=== PATIENT | male | born 1990 | race American Indian/Alaskan Native ===

== ENCOUNTER 2021-07-04 03:55 | Emergency (ER) | payer SELFPAY ==
[2021-07-04 04:49] VITALS: BP 131/78
[2021-07-04] MEDS ORDERED: SODIUM CHLORIDE 0.9% 1000 ML 1,000 ML IV ONE (05:08)
[2021-07-04] MEDS ORDERED: MORPHINE 4 MG/1 ML INJ IV ONE (05:08)
[2021-07-04] MEDS ORDERED: ONDANSETRON 4 MG/2 ML INJ IV ONE (05:08)
--- NOTE | 2021-07-04 05:11 | Event Note ---
ED Screening Note ED Screening Note: 30-year-old male who presents with severe right lower quadrant pain. Labs CT IV medications ordered. I performed medical screening exam.
[2021-07-04 06:30] LABS: Basophils % (Auto) 0.3 % (0.0-1.8); Eosinophils % (Auto) 0.1 % (0.0-4.3); Hematocrit 42.9 % (35.5-45.6); Hemoglobin 14.5 gm/dl (11.8-15.2); Lymphocytes % (Auto) 15.8 % (13.4-35.0); Mean Corpuscular HGB Conc 34 % (32-34); Mean Corpuscular Volume 94 fl (84-94); Monocytes # (Auto) 0.3 K/mm3 (0.0-0.8); Monocytes % (Auto) 5.3 % (0.0-7.3); Platelet Count 258 K/mm3 (140-440); Red Blood Count 4.55 M/mm3 (3.65-5.03); Red Cell Distribution Width 13.7 % (13.2-15.2)
[2021-07-04 06:50] LABS: BUN/Creatinine Ratio 13; Blood Urea Nitrogen 17 mg/dL (9-20); Calcium 9.3 mg/dL (8.4-10.2); Hemolysis Index 1
--- NOTE | 2021-07-04 07:32 | Emergency Department Report ---
ED Abdominal Pain HPI - General Chief Complaint: Abdominal Pain Stated Complaint: POSS APPENDIX Time Seen by Provider: 07/04/21 07:21 Source: patient Mode of arrival: Ambulatory Limitations: No Limitations - History of Present Illness Initial Comments: This is a 30-year-old AA male that presents with right sided abdominal pain radiating to right testicle that started last night. Patient reports pain as constant stabbing intensity. He was having a bowl movement when symptoms started. He denies urinary frequency, urgency, dysuria, penile discharge, back pain, fever, chills, or hematuria. MD Complaint: abdominal pain -: Last night Location: RUQ, RLQ Radiation: none, R flank Migration to: no migration Severity scale (0 -10): 9 Quality: stabbing Consistency: constant Improves With: nothing Worsens With: bowel movement Associated Symptoms: denies: nausea, vomiting, diarrhea, constipation, dysuria, hematuria - Related Data Previous Rx's Medication Instructions Recorded Last Taken Type Ciprofloxacin HCl 500 mg PO BID #14 tablet 07/04/21 Unknown Rx Ketorolac [Toradol] 10 mg PO Q6H PRN #8 tablet 07/04/21 Unknown Rx Tamsulosin [Flomax] 0.4 mg PO QDAY #5 cap 07/04/21 Unknown Rx oxyCODONE /ACETAMINOPHEN [Percocet 1 tab PO Q6HR PRN #12 tablet 07/04/21 Unknown Rx 5/325] Allergies Allergy/AdvReac Type Severity Reaction Status Date / Time No Known Allergies Allergy Unverified 07/04/21 04:43 ED Review of Systems ROS: Stated complaint: POSS APPENDIX Other details as noted in HPI Constitutional: denies: chills, fever Respiratory: denies: cough, shortness of breath, wheezing Cardiovascular: denies: chest pain, palpitations Gastrointestinal: abdominal pain. denies: nausea, diarrhea Genitourinary: denies: urgency, dysuria Musculoskeletal: denies: back pain, joint swelling, arthralgia Neurological: denies: headache, weakness, paresthesias Psychiatric: denies: anxiety, depression ED Past Medical Hx - Medications Home Medications: Home Medications Medication Instructions Recorded Confirmed Last Taken Type Ciprofloxacin HCl 500 mg PO BID #14 tablet 07/04/21 Unknown Rx Ketorolac [Toradol] 10 mg PO Q6H PRN #8 tablet 07/04/21 Unknown Rx Tamsulosin [Flomax] 0.4 mg PO QDAY #5 cap 07/04/21 Unknown Rx oxyCODONE /ACETAMINOPHEN [Percocet 1 tab PO Q6HR PRN #12 tablet 07/04/21 Unknown Rx 5/325] ED Physical Exam - General Limitations: No Limitations General appearance: alert, in no apparent distress - Respiratory Respiratory exam: Present: normal lung sounds bilaterally. Absent: respiratory distress - Cardiovascular Cardiovascular Exam: Present: regular rate, normal rhythm. Absent: systolic murmur, diastolic murmur, rubs, gallop - GI/Abdominal GI/Abdominal exam: Present: soft, tenderness (Right lower quadrant and left lower quadrant), guarding, normal bowel sounds. Absent: rebound, rigid, organomegaly, mass, pulsatile mass - exam: Present: circumcision. Absent: testicular tenderness, urethral discharge - Back Exam Back exam: Absent: CVA tenderness (R), CVA tenderness (L) - Neurological Exam Neurological exam: Present: alert, oriented X3, normal gait - Psychiatric Psychiatric exam: Present: normal affect, normal mood - Skin Skin exam: Present: warm, dry, intact, normal color. Absent: rash ED Course Vital Signs 07/04/21 04:48 Temperature 97.8 F Pulse Rate 60 Respiratory 16 Rate Blood Pressure 131/78 [Left] O2 Sat by Pulse 100 Oximetry ED Medical Decision Making - Lab Data Result diagrams: 07/04/21 06:03 07/04/21 06:03 Vital Signs 07/04/21 04:48 Temperature 97.8 F Pulse Rate 60 Respiratory 16 Rate Blood Pressure 131/78 [Left] O2 Sat by Pulse 100 Oximetry Lab Results 07/04/21 07/04/21 Range/Units 06:03 06:03 WBC 6.1 (4.5-11.0) K/mm3 RBC 4.55 (3.65-5.03) M/mm3 Hgb 14.5 (11.8-15.2) gm/dl Hct 42.9 (35.5-45.6) % MCV 94 (84-94) fl MCH 32 (28-32) pg MCHC 34 (32-34) % RDW 13.7 (13.2-15.2) % Plt Count 258 (140-440) K/mm3 Lymph % (Auto) 15.8 (13.4-35.0) % [place] % (Auto) 5.3 (0.0-7.3) % Eos % (Auto) 0.1 (0.0-4.3) % Baso % (Auto) 0.3 (0.0-1.8) % Lymph # (Auto) 1.0 L (1.2-5.4) K/mm3 [place] # (Auto) 0.3 (0.0-0.8) K/mm3 Eos # (Auto) 0.0 (0.0-0.4) K/mm3 Baso # (Auto) 0.0 (0.0-0.1) K/mm3 Seg Neutrophils % 78.5 H (40.0-70.0) % Seg Neutrophils # 4.8 (1.8-7.7) K/mm3 Sodium 139 (137-145) mmol/L Potassium 4.2 (3.6-5.0) mmol/L Chloride 102.1 (98-107) mmol/L Carbon Dioxide 29 (22-30) mmol/L Anion Gap 12 mmol/L BUN 17 (9-20) mg/dL Creatinine 1.3 (0.8-1.3) mg/dL Estimated GFR > 60 ml/min BUN/Creatinine Ratio 13 % Glucose 118 H (75-100) mg/dL Calcium 9.3 (8.4-10.2) mg/dL Lipase 203 H (13-60) units/L - Radiology Data Radiology results: report reviewed CT ABDOMEN AND PELVIS WITH CONTRAST INDICATION / CLINICAL INFORMATION: Pt complains of severe R.L.Q. abdominal pain. OMNI 300 100 ML. TECHNIQUE: Axial CT images were obtained through the abdomen and pelvis after 100 cc of Omnipaque [address] scans at this location are performed using CT dose reduction for ALARA by means of automated exposure control. COMPARISON: None available. FINDINGS: LOWER CHEST: No significant abnormality. AORTA / ARTERIES: No significant abnormality. IVC / VEINS: No significant abnormality. LYMPH NODES: No significant adenopathy. COLON: No significant abnormality. APPENDIX: No significant abnormality. STOMACH / SMALL BOWEL: No significant abnormality. PERITONEUM: No free fluid. No free air. No fluid collection. LIVER: No significant abnormality. GALLBLADDER: No significant abnormality. BILE DUCTS: No significant abnormality. PANCREAS: No significant abnormality. SPLEEN: No significant abnormality. ADRENALS: No significant abnormality. RIGHT KIDNEY / URETER: There is a delayed nephrogram with moderate hydronephrosis. This is secondary to a 6 mm stone at the right ureterovesicular junction. LEFT KIDNEY / URETER: No significant abnormality. URINARY BLADDER: No significant abnormality. REPRODUCTIVE ORGANS: No significant abnormality. SKELETAL SYSTEM: No significant abnormality. ADDITIONAL FINDINGS: None. IMPRESSION: 1. There is a 6 mm stone at the right ureterovesicular junction which is causing obstructive nephropathy as demonstrated by delayed nephrogram and moderate hydronephrosis. Signer Name: Larry SilveiraDO Signed: 07/04/2021 8:07 AM Workstation Name: [id number] ULTRASOUND SCROTUM INDICATION / CLINICAL INFORMATION: right testicular pain/tenderness. COMPARISON: None available. FINDINGS -- RIGHT: TESTIS: Size = 4.4 x 2.0 x 2.9 cm. - Appearance: No significant abnormality. - Cyst / Mass: None. - Color Doppler Flow: No significant abnormality. EPIDIDYMIS: No significant abnormality. HYDROCELE: None. VARICOCELE: None demonstrated. FINDINGS -- LEFT: TESTIS: Size = 4.1 x 2.2 x 2.6 cm. - Appearance: No significant abnormality. - Cyst / Mass: None. - Color Doppler Flow: No significant abnormality. EPIDIDYMIS: No significant abnormality. HYDROCELE: None. VARICOCELE: None demonstrated. ADDITIONAL FINDINGS: None. IMPRESSION: 1. No intratesticular mass or torsion. Signer Name: Larry BlandDO damien Signed: 07/04/2021 8:20 AM Workstation Name: [id number] - Medical Decision Making This is a 30-year-old male who presents to the emergency room with right lower quadrant pain radiating to the right scrotum. Patient is afebrile with no acute distress. Symptoms most likely related to renal colic from a non-infected kidney stone. There is a low suspicion of appendicitis, genital torsion, acute cholecystitis, aortic dissection, or serious bacterial infection. Work-up: CBC, BMP, urinalysis, CT of abdomen and pelvis. There is a 6 mm stone at the right ureterovesicular junction which is causing obstructive nephropathy as demonstra dylon by delayed nephrogram and moderate hydronephrosis. . Given IV fluids, IV analgesics. Patient is tolerating oral fluids and pain is controlled. Start antibiotics, analgesics, and tamsulosin. Referral to urology. Follow-up with primary care doctor in 2 to 3 days. Patient discharged home stable with strict return instructions. Critical care attestation.: If time is entered above; I have spent that time in minutes in the direct care of this critically ill patient, excluding procedure time. ED Disposition Clinical Impression: Nephrolithiasis Abdominal pain Qualifiers: Abdominal location: generalized Qualified Code(s): R10.84 - Generalized a bdominal pain Disposition: HOME / SELF CARE / HOMELESS Is pt being admited?: No Condition: Stable Instructions: Renal Colic, [id number], Kidney Stones, [id number], Dietary Guidelines to Help Prevent Kidney Stones Prescriptions: Ciprofloxacin HCl 500 mg PO BID #14 tablet Tamsulosin [Flomax] 0.4 mg PO QDAY #5 cap oxyCODONE /ACETAMINOPHEN [Percocet 5/325] 1 tab PO Q6HR PRN #12 tablet PRN Reason: Pain Ketorolac [Toradol] 10 mg PO Q6H PRN #8 tablet PRN Reason: Pain Referrals: JAMES WEN MD [Staff Physician] - 3-5 Days [facility] [Provider Group] - 3-5 Days Forms: Work/School Release Form(ED) Time of Disposition: 09:59
--- NOTE | 2021-07-04 08:12 | Cat Scan Report ---
CT ABDOMEN AND PELVIS WITH CONTRAST INDICATION / CLINICAL INFORMATION: Pt complains of severe R.L.Q. abdominal pain. OMNI 300 100 ML. TECHNIQUE: Axial CT images were obtained through the abdomen and pelvis after 100 cc of Omnipaque [address] scans at this location are performed using CT dose reduction for ALARA by means of automated exposure control. COMPARISON: None available. FINDINGS: LOWER CHEST: No significant abnormality. AORTA / ARTERIES: No significant abnormality. IVC / VEINS: No significant abnormality. LYMPH NODES: No significant adenopathy. COLON: No significant abnormality. APPENDIX: No significant abnormality. STOMACH / SMALL BOWEL: No significant abnormality. PERITONEUM: No free fluid. No free air. No fluid collection. LIVER: No significant abnormality. GALLBLADDER: No significant abnormality. BILE DUCTS: No significant abnormality. PANCREAS: No significant abnormality. SPLEEN: No significant abnormality. ADRENALS: No significant abnormality. RIGHT KIDNEY / URETER: There is a delayed nephrogram with moderate hydronephrosis. This is secondary to a 6 mm stone at the right ureterovesicular junction. LEFT KIDNEY / URETER: No significant abnormality. URINARY BLADDER: No significant abnormality. REPRODUCTIVE ORGANS: No significant abnormality. SKELETAL SYSTEM: No significant abnormality. ADDITIONAL FINDINGS: None. IMPRESSION: 1. There is a 6 mm stone at the right ureterovesicular junction which is causing obstructive nephropa thy as demonstrated by delayed nephrogram and moderate hydronephrosis. Signer Name: Larry Silveira DO Signed: 07/04/2021 8:07 AM Workstation Name: [id number]
--- NOTE | 2021-07-04 08:24 | Ultrasound Report ---
ULTRASOUND SCROTUM INDICATION / CLINICAL INFORMATION: right testicular pain/tenderness. COMPARISON: None available. FINDINGS -- RIGHT: TESTIS: Size = 4.4 x 2.0 x 2.9 cm. - Appearance: No significant abnormality. - Cyst / Mass: None. - Color Doppler Flow: No significant abnormality. EPIDIDYMIS: No significant abnormality. HYDROCELE: None. VARICOCELE: None demonstrated. FINDINGS -- LEFT: TESTIS: Size = 4.1 x 2.2 x 2.6 cm. - Appearance: No significant abnormality. - Cyst / Mass: None. - Color Doppler Flow: No significant abnormality. EPIDIDYMIS: No significant abnormality. HYDROCELE: None. VARICOCELE: None demonstrated. ADDITIONAL FINDINGS: None. IMPRESSION: 1. No intratesticular mass or torsion. Signer Name: Larry Silveira DO Signed: 07/04/2021 8:20 AM Workstation Name: [id number]
== END 2021-07-04 11:06 | disposition home or self-care (01) ==
LOC: ED 03:55
DX: N20.0 Calculus of kidney (principal); R10.31 Right lower quadrant pain; R10.11 Right upper quadrant pain
CPT/HCPCS: 36415; 74177; 80048; 83690; 85025; 93975; 96361; 96374; 96375; 99284; J2270; J2405; J7030; Q9967